=== PATIENT | male | born 1995 | race Two or more races ===

== ENCOUNTER 2023-06-05 15:00 | Outpatient (CLI) | payer OTHER, SELFPAY ==
--- NOTE | ~2023-06-05 | XR_ITS ---
Supine and upright views of the abdomen Clinical history: Left ureteral stone Findings: Bowel gas pattern is nonspecific. No evidence for obstruction or free air stenosis and a 4 mm proximal left ureteral stone. There is mild to moderate left hydronephrosis with contrast and the left renal collecting system. Questionable right renal stones versus small amount of contrast in the right renal collecting system. Contrast is present in the urinary bladder. Osseous structures are int act. Impression: Suspected 4 mm proximal left ureteral stone. Questionable right renal stones versus small amount of residual contrast material present. Mild to moderate left hydronephrosis. Reviewed, dictated and finalized at location . Impression: Suspected 4 mm proximal left ureteral stone. Questionable right renal stones versus small amount of residual contrast materi al present. Mild to moderate left hydronephrosis.
== END 2023-06-05 15:01 | disposition home or self-care (01) ==
PROVIDERS: PCP Internal Medicine; Visit Provider Nurse Practitioner Adult Health
DX: N20.1 Calculus of ureter (principal)
CPT/HCPCS: 74018